=== PATIENT | male | born 1960 | race Caucasian/White ===

== ENCOUNTER 2022-07-12 03:10 | Inpatient (IN) | payer SELFPAY ==
[2022-07-12] MEDS ORDERED: predniSONE 20 MG TAB ONE (03:43)
[2022-07-12 04:01] LABS: #Basophils 0.1 10x3/uL (0.0-0.2); #Eosinphils 0.2 10x3/uL (0.0-0.5); #Monocytes 0.7 10x3/uL (0.0-1.1); %Basophils 1.8 % (0.0-2.0); %Eosinophils 3.3 % (0.0-6.0); %Lymphocytes 34.4 % (18.0-47.0); %Monocytes 11.8 % (0.0-10.0); %Neutrophils 47.4 % (40.0-75.0); Hemoglobin 11.8 g/dL (13.5-17.5); Mean Corpuscular HGB CONC 32.1 g/dL (32.0-36.0); Mean Corpuscular Hemoglobin 29.9 pg (27.0-33.0); Mean Corpuscular Volume 93.2 fl (81.2-95.1); Mean Platelet Volume 9.1 fl (7.4-10.4); Platelet Count 406 10x3/uL (150-450); RBC Distribution Width 16.5 % (11.5-14.5); Red Blood Cell (RBC) Count 3.95 10x6/uL (4.32-5.72); White Blood Cell (WBC) Count 6.3 10x3/uL (3.5-10.5)
[2022-07-12 04:04] LABS: ALT (SGPT) 50 U/L (8-55); AST (SGOT) 35 U/L (5-34); Albumin 4.1 g/dL (3.5-5.0); Alkaline Phosphatase 117 U/L (40-110); Anion Gap 12 mmol/L (10-20); BUN (Urea Nitrogen) 15 mg/dL (8.4-25.7); Bilirubin, Total 0.2 mg/dL (0.2-1.2); Calc. Creatinine Clearance 0 mL/min (70-130); Calcium 9.4 mg/dL (7.8-10.44); Carbon Dioxide 30 mmol/L (22-29); Chloride 106 mmol/L (98-107); Estimated GFR 65; Globulin 3.3 g/dL (2.4-3.5); Glucose 91 mg/dL (70-105); Magnesium 2.3 mg/dL (1.6-2.6); Potassium 4.1 mmol/L (3.5-5.1); Protein, Total 7.4 g/dL (6.0-8.3); Sodium 144 mmol/L (136-145)
[2022-07-12 04:24] LABS: CKMB 2.5 ng/mL (0-6.6)
[2022-07-12 05:04] LABS: SARS-CoV-2 NAA Rapid Test Not Detected (NotDetected)
[2022-07-12] MEDS ORDERED: Aspirin Chewable 81 MG TAB ONE (05:11)
[2022-07-12] MEDS ORDERED: Acetaminophen 325 MG TAB PO PRN (06:07)
[2022-07-12] MEDS ORDERED: Guaifenesin DM 100-10/5 ML UDCUP PO PRN (06:07)
[2022-07-12] MEDS ORDERED: Senokot S 8.6-50 MG TAB PO PRN (06:07)
[2022-07-12] MEDS ORDERED: Ondansetron PF 4 MG/2 ML Vial IVP PRN (06:07)
[2022-07-12] MEDS ORDERED: Enoxaparin Sodium 80 MG/0.8 ML SYRINGE ONE (06:18)
[2022-07-12] MEDS ORDERED: hydrOXYzine 25 MG TAB ONE (06:18)
[2022-07-12 08:25] LABS: Acetaminophen Less than 10.0 mcg/mL (10.0-30.0); Alcohol Less than 10 mg/dL (Less than 10); Salicylate Less than 8.0 mg/dL (15.0-30.0)
[2022-07-12 09:05] LABS: Cardiac Risk 3.4 (Less than 4.5)
[2022-07-12] MEDS ORDERED: Iopamidol 370 76% 100 ML VIAL ONE (09:10)
[2022-07-12 10:05] VITALS: BMI 25.8
[2022-07-12] MEDS: Lorazepam 2 MG/ML VIAL SLOW IVP PRN ×2 (10:53→15:07)
[2022-07-12] MEDS ORDERED: Lisinopril 5 MG TAB PO SCH (11:00)
[2022-07-12] MEDS ORDERED: Multivitamin W/ Minerals 1 TAB PO SCH (11:00)
[2022-07-12] MEDS ORDERED: Aspirin 81 mg Enteric Coated Tablet PO SCH (11:00)
[2022-07-12] MEDS ORDERED: Folic Acid 1 MG TAB PO SCH (11:00)
[2022-07-12] MEDS ORDERED: Thiamine 100 MG TAB PO SCH (11:00)
[2022-07-12] MEDS ORDERED: Metoprolol Tartrate 25 MG TAB PO SCH (11:00)
[2022-07-12 13:07] LABS: CKMB 1.8 ng/mL (0-6.6)
[2022-07-12] MEDS: Gabapentin 300 MG CAP PO SCH ×2 (14:46→21:42)
[2022-07-12] MEDS ORDERED: Enoxaparin Sodium 40 MG/0.4 ML SYRINGE SC SCH (21:00)
[2022-07-12] MEDS ORDERED: traZODone HCl 50 MG TAB PO SCH (21:00)
[2022-07-12] MEDS ORDERED: Melatonin 3 MG TAB PO SCH (21:00)
[2022-07-12] MEDS ORDERED: Aripiprazole 10 MG TAB PO SCH (21:00)
[2022-07-12] MEDS: Metoprolol Tartrate 25 MG TAB PO SCH (21:42)
[2022-07-12] MEDS: Triple Antibiotic Oint 1 GM Packet TOP SCH (21:43)
[2022-07-13] MEDS: Lorazepam 2 MG/ML VIAL SLOW IVP PRN (04:41)
[2022-07-13 08:15] VITALS: BP 150/85; TEMP 97.7
[2022-07-13] MEDS ORDERED: Folic Acid 1 MG TAB PO SCH (09:00)
[2022-07-13] MEDS ORDERED: Thiamine 100 MG TAB PO SCH (09:00)
[2022-07-13] MEDS ORDERED: Multivit, Therapeutic 1 TAB PO SCH (09:00)
[2022-07-13] MEDS ORDERED: Lisinopril 5 MG TAB PO SCH (09:00)
[2022-07-13] MEDS ORDERED: FLUoxetine HCl 10 MG CAP PO SCH (09:00)
[2022-07-13] MEDS ORDERED: Aspirin 81 mg Enteric Coated Tablet PO SCH (09:00)
[2022-07-13] MEDS: Triple Antibiotic Oint 1 GM Packet TOP SCH (09:29)
[2022-07-13] MEDS: Gabapentin 300 MG CAP PO SCH (09:44)
[2022-07-13] MEDS ORDERED: Carvedilol 6.25 MG TAB PO SCH ×2 (10:00→17:00)
[2022-07-13] MEDS: Metoprolol Tartrate 25 MG TAB PO SCH (10:26)
== END 2022-07-13 11:00 | disposition home or self-care (01) | DRG 305 ==
LOC: CSHERS 03:10 → CSHTELE 07:30
PROVIDERS: ADMIT Emergency Medicine; ATTEND Family Medicine
DX: I10 Essential (primary) hypertension (principal); J98.11 Atelectasis; F17.210 Nicotine dependence, cigarettes, uncomplicated; Z20.822 Contact with and (suspected) exposure to COVID-19; F41.9 Anxiety disorder, unspecified; F32.A Depression, unspecified; F10.10 Alcohol abuse, uncomplicated; Z90.49 Acquired absence of other specified parts of digestive tract
CPT/HCPCS: 36415; 71045; 71275; 80053; 80061; 80307; 82553; 83735; 83880; 84484; 85025; 93005; 93306; 94640; 94760; 96372; J1650; J2060; J7512; J7620; Q9967; U0002